=== PATIENT | female | born 1980 | race Caucasian/White ===

== ENCOUNTER 2017-03-16 08:34 | Emergency (ER) | payer SELFPAY ==
[~2017-03-16] VITALS: Ht 160 cm; Wt 131.5 kg
[2017-03-16] MEDS ORDERED: KETOROLAC TROMETHAMINE 60 MG/2 ML VIAL IM ONE (10:30)
[2017-03-16] MEDS ORDERED: DIAZEPAM 2 MG TAB PO ONE (10:30)
[2017-03-16] MEDS ORDERED: HYDROCODONE/APAP 10MG-325MG TAB PO ONE (10:30)
[2017-03-16] MEDS ORDERED: DEXAMETHASONE SOD PHOS 10 MG/1 ML VIAL INJ ONE (11:00)
== END 2017-03-16 11:04 | disposition home or self-care (01) ==
LOC: ER 08:34
DX: M54.2 Cervicalgia (principal); M54.12 Radiculopathy, cervical region
CPT/HCPCS: 99282; J1100; J1885

== ENCOUNTER 2017-03-27 08:31 | Emergency (ER) | payer OTHER ==
[~2017-03-27] VITALS: Ht 160 cm; Wt 136.1 kg
[2017-03-27] MEDS ORDERED: ONDANSETRON HCL 4 MG ORAL DISINTEGRATING TAB PO ONE (09:00)
[2017-03-27] MEDS ORDERED: SODIUM CHLORIDE 0.9% 1000ML 1,000 ML IV STA (09:40)
[2017-03-27] MEDS ORDERED: GABAPENTIN300 MG (09:51)
[2017-03-27] MEDS ORDERED: DIAZEPAM5 MG (09:51)
[2017-03-27] MEDS ORDERED: AMITRIPTYLINE150 MG (09:51)
[2017-03-27] MEDS ORDERED: DIOVAN80 MG PO (09:52)
[2017-03-27 12:04] VITALS: BP 136/68
== END 2017-03-27 11:30 | disposition home or self-care (01) ==
LOC: FSED 08:31
DX: R42 Dizziness and giddiness (principal); R11.0 Nausea; I10 Essential (primary) hypertension; R31.9 Hematuria, unspecified; D64.9 Anemia, unspecified
CPT/HCPCS: 80053; 81025; 85025; 99282; J7030

== ENCOUNTER 2019-04-29 10:25 | Observation (INO) | payer BC, OTHER ==
[2019-04-27 12:59] LABS: BASOPHILS # (AUTO) 0.1 (0.0-0.1); BASOPHILS % 0.7 % (0.0-1.0); EOSINOPHILS # (AUTO) 0.1 (0.0-0.4); EOSINOPHILS % 1.4 % (0.0-6.0); HEMATOCRIT 39.9 % (34.2-44.1); HEMOGLOBIN 12.5 g/dL (12.0-16.0); LYMPHOCYTES # (AUTO) 2.6 (1.0-3.2); LYMPHOCYTES % 36.8 % (18.0-39.1); MEAN CORPUSCULAR HEMOGLOBIN 24.6 pg (28-32); MEAN CORPUSCULAR HGB CONC 31.3 g/dL (31-35); MEAN CORPUSCULAR VOLUME 78.4 fL (81-99); MONOCYTES # (AUTO) 0.5 (0.2-0.8); MONOCYTES % 6.3 % (4.4-11.3); NEUTROPHILS # (AUTO) 3.9 (2.1-6.9); NEUTROPHILS % 54.4 % (38.7-80.0); PLATELET COUNT 247 x10e3/uL (140-360); RED BLOOD COUNT 5.09 x10e6/uL (3.6-5.1); RED CELL DISTRIBUTION WIDTH 21.9 % (11.7-14.4)
[2019-04-27 13:29] LABS: ALANINE AMINOTRANSFERASE 27 IU/L (0-55); ALBUMIN 3.9 g/dL (3.5-5.0); ALBUMIN/GLOBULIN RATIO 1.2 (0.8-2.0); ALKALINE PHOSPHATASE 70 IU/L (40-150); ANION GAP 12.2 mmol/L (8-16); BLOOD UREA NITROGEN 9 mg/dL (7-26); BUN/CREATININE RATIO 11 (6-25); CALCIUM 9.4 mg/dL (8.4-10.2); CARBON DIOXIDE 27 mmol/L (22-29); CHLORIDE 108 mmol/L (98-107); CREATININE, SERUM 0.82 mg/dL (0.57-1.11); EST GLOMERULAR FILTRATION RATE > 60 ML/MIN (60-); GLUCOSE 82 mg/dL (74-118); POTASSIUM 4.2 mmol/L (3.5-5.1); SODIUM 143 mmol/L (136-145)
[2019-04-27 13:32] LABS: CLARITY,URINE CLEAR (CLEAR); COLOR,URINE YELLOW (YELLOW); LEUKOCYTE ESTERASE ,URINE NEGATIVE (NEGATIVE); NITRITE,URINE NEGATIVE (NEGATIVE); PROTEIN,URINE DIPSTICK NEGATIVE (NEGATIVE)
[2019-04-27 13:33] LABS: BILIRUBIN,URINE NEGATIVE (NEGATIVE); KETONES,URINE NEGATIVE (NEGATIVE); URINE UROBILINOGEN 0.2 mg/dL (0.2 - 1)
[~2019-04-29 10:25] MED LIST: AMITRIPTYLINE H25 MG PO; AMITRIPTYLINE150 MG; BUTALBITAL-ACE1 EAC1; CLONAZEPAM1 MG PO; DIAZEPAM5 MG; DIOVAN80 MG PO; GABAPENTIN300 MG; LEXAPRO10 MG PO; LOSARTAN POTAS100 MG PO; NAPROXEN250 MG PO; OMEPRAZOLE40 MG; ORILISSA200 MG
[2019-04-29] MEDS ORDERED: BUPIVACAINE 0.25% 30ML SDV INJ ONE (10:31)
[2019-04-29] MEDS ORDERED: ESTROGENS CONJUGATED VAGINAL CR 45 GM TUBE PV ONE (10:31)
--- OUTSIDE RECORDS SUMMARY | 2019-04-29 10:45 | XMS REPORT | Summary of Care ---
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, 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) Status: Active Chronic neck and back pain (723.1, M54.2) Status: Active Uterine endometriosis (617.0, N80.0) Status: Active Screen for colon cancer (V76.51, Z12.11) Status: Active LAP-BAND surgery status (V45.86, Z98.84) Status: Active Iron deficiency anemia due to chronic blood loss (280.0, D50.0) Status: Active Dental abscess (522.5, K04.7) Status: Active 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, F40.01) Status: Active Other headache syndrome (339.89, G44.89) Status: Active Other mcc (current) drug therapy (V58.69, Z79.899) Status: Active Abdominal pain (789.00, R10.9) Status: Active Acute UTI (599.0, N39.0) Status: Active Anemia, unspecified type (285.9, D64.9) Status: Active Hypernatremia (276.0, E87.0) Status: Active Morbid obesity (278.01, E66.01) Status: Active 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, 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) Status: Active 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, 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) Status: Active Need for influenza vaccination (V04.81, Z23) Status: Active Allergic rhinitis (477.9, J30.9) Status: Active Acute serous otitis media of left ear, recurrence not specified (381.01, H65.02) Status: Active Other iron deficiency anemia (280.8, D50.8) Status: Active Elevated homocysteine (270.4, E72.11) Status: Active Other folate deficiency anemias (281.2, D52.8) Status: Active Benign essential hypertension (401.1, I10) Status: Active Anxiety and depression (300.00, F41.9) Status: Active Chronic GERD (530.81, K21.9) Status: Active Medications Name Dates Details Gabapentin 300 MG Oral Capsule TAKE 1 CAPSULE BY MOUTH THREE TIMES DAILY Quantity: 45 SATTAR M.D., OJ * Start : 10-Apr-2017 Active Amitriptyline HCl - 150 MG Oral Tablet TAKE 1 TABLET BY MOUTH DAILY * Quantity: 15 Refills: 0 SATTAR M.D., OJ * Start : 10-Apr-2017 Active Naproxen 500 MG Oral Tablet TAKE 1 TABLET BY MOUTH TWICE DAILY WITH MEALS * Quantity: 30 Refills: 0 LESTER SANDRA N.P. * Start : 07-Aug-2017 Active Xyzal Allergy 24HR 5 MG Oral Tablet TAKE 1 TABLET DAILY. * Refills: 0 * Start : 10-Apr-2017 Active Butalbital-Acetaminophen 50-325 MG Oral Tablet TAKE 1 TABLET ONCE A DAY NEEDED * Quantity: 30 Refills: 0 SATTAR M.D., OJ * Start : 10-Apr-2017 Active busPIRone HCl - 15 MG Oral Tablet TAKE 1 TABLET EVERY 12 HOURS DAILY. * Quantity: 60 Refills: 4 SATTAR M.D., OJ * Start : 10-Apr-2017 Active Folic Acid 1 MG Oral Tablet TAKE 1 TABLET BY MOUTH DAILY * Quantity: 15 Refills: 0 SATTAR M.D., OJ * Start : 16-Apr-2017 Active Omeprazole 40 MG Oral Capsule Delayed Release TAKE 1 CAPSULE Daily 30 min to 1hr before breakfast * Quantity: 90 Refills: 1 SATTAR M.D., OJ * Start : 23-Apr-2017 Active Losartan Potassium 100 MG Oral Tablet TAKE 1 TABLET DAILY. * Quantity: 90 Refills: 1 SATTAR M.D., OJ * Start : 16-Sep-2017 Active Escitalopram Oxalate 5 MG Oral Tablet TAKE 1 TABLET BY MOUTH DAILY * Quantity: 15 Refills: 0 ESPINOZA Martinez, OJ * Start : 26-Mar-2018 Active Allergies and Adverse Reactions Name Dates Details Penicillins (Allergy) Status: Active Procedures Procedure Dates Details History of Tubal ligation Completed History of section Completed History of Tonsillectomy Completed History of Laparoscopy Completed Immunization Name Dates Details Tdap on: 24-Sep-2011 Fluzone Quadrivalent 0.5 ML Intramuscular Suspension Lot #: [id number] on: 02-Dec-2017 Family History Name Dates Details Family history of Anxiety (300.00, F41.9) Status: Active Name Dates Details Family history of hypertension (V17.49, Z82.49) Status: Active Name Dates Details Family history of bipolar disorder (V17.0, Z81.8) Status: Active Social History Name Dates Details - Status: Name Dates Details Former smoker Vital Signs Date Test Result Details No Known Vitals to report Results Date Description Value Details Results not documented Plan of Care Name Dates Details Planned Observations Planned Goals not documented Interventions Provided Medication Changes* Amitriptyline HCl - 150 MG Oral Tablet - Renew * Escitalopram Oxalate 5 MG Oral Tablet - Renew * Folic Acid 1 MG Oral Tablet - Renew * Gabapentin 300 MG Oral Capsule - Renew Instructions Name Dates Details Instructions not documented Encounters Appointment; OJ DORAN M.D. Encounter Diagnosis: Problem not documented On: 10-Apr-2017 13:15 Appointment; OJ DORAN M.D. Encounter Diagnosis: Problem not documented On: 23-Apr-2017 8:00 Appointment; MARLO HALL M.D. Encounter Diagnosis: Problem not documented On: 23-Apr-2017 13:00 Appointment; OJ DORAN M.D. Encounter Diagnosis: Problem not documented On: 25-May-2017 8:00 Appointment; SINTIA JOHN P.A. Encounter Diagnosis: Problem not documented On: 11-Jun-2017 11:30 Appointment; OSIRIS MONTE M.D. Encounter Diagnosis: Problem not documented On: 24-Jun-2017 9:00 Appointment; OJ DORAN M.D. Encounter Diagnosis: Problem not documented On: 13-Jul-2017 8:30 Appointment; CHESTER OSHEA Encounter Diagnosis: Problem not documented On: 22-Jul-2017 11:00 Appointment; OSIRIS MONTE M.D. Encounter Diagnosis: Problem not documented On: 07-Sep-2017 10:00 Appointment; OJ DORAN M.D. Encounter Diagnosis: Problem not documented On: 08-Sep-2017 8:15 Appointment; SUAD DELCID P.A. Encounter Diagnosis: Problem not documented On: 22-Sep-2017 9:15 Appointment; OJ DORAN M.D. Encounter Diagnosis: Problem not documented On: 14-Oct-2017 10:00 Appointment; OJ DORAN M.D. Encounter Diagnosis: Problem not documented On: 02-Dec-2017 14:30 Appointment; Jama Garcia M.D. Encounter Diagnosis: Problem not documented On: 11-Dec-2017 9:30 Appointment; SINTIA JOHN P.A. Encounter Diagnosis: Problem not documented On: 31-Dec-2017 14:00 Appointment; OJ DORAN M.D. Encounter Diagnosis: Problem not documented On: 26-Mar-2018 8:30 Appointment; OJ DORAN M.D. Encounter Diagnosis: Problem not documented On: 02-Aug-2018 10:00 Appointment; OJ DORAN M.D. Encounter Diagnosis: Problem not documented On: 02-Aug-2018 10:00
--- OUTSIDE RECORDS SUMMARY | 2019-04-29 10:45 | XMS REPORT ---
Author Author [facility] Address Unknown Phone Unavailable Care Team Providers Care Director Of Corporate Responsibility Name Role Phone Unavailable Unavailable Payers Payer Name Policy Type Policy Number Effective Date Expiration Date Problems This patient has no known problems. Allergies, Adverse Reactions, Alerts This patient has no known allergies or adverse reactions. Medications This patient has no known medications. Results Test Description Test Time Test Comments Text Results Atomic Results Result Comments - US ABDOMEN COMPLETE 2018-12-02 12:41:00 Name: KAVYA ANDRES [facility] : 1980 Age/S: 38 / F [address] Unit #: [id number] Loc: [place] [address] Phys: JacksonSy Shay DO Acct: [id number] Dis Date: Status: REG CLI PHONE #: [phone] Exam Date: 12/02/2018 1021 FAX #: [phone] Reason: R10.11 EXAMS: CPT CODE: [id number] US ABDOMEN COMPLETE 87347 HISTORY: R10.11. COMPARISON: None available. The liver is hyperechogenic suggesting mild fibrofatty infiltration which limited evaluation for intrahepatic mass however no discrete lesions. The liver is measuring 18.1 cm in length. No intra or extrahepatic biliary ductal dilatation. CBD is normal at 4.4 mm. Main portal vein is patent with hepatopedal flow and normal spectral waveform. Gallbladder is without gallstones. No pericholecystic fluid or wall thickening. No ascites. Kidneys are free from hydronephrosis and calyceal stones. Normal echogenicity and texture. Right kidney measured 10.3 cm in length. Left kidney measured 12 cm in length. Spleen is mildly enlarged at 15.4 cm in length. Visualized portions of the IVC, aorta and pancreas are normal however imaged incompletely. IMPRESSION: Mild hepatomegaly and mild fibrofatty infiltration. Mild splenomegaly at 15.4 cm in length. Unremarkable kidneys. No gallstones. at 1241 Reported and signed by: Jon Merino M.D. CC: Sy Paz DO Technologist: YUAN VIGIL(R),[facility] Date/Time: 12/02/2018 (1241) [email or web address] Orig Print D/T: S: 12/02/2018 (7048) Probe: PAGE 1 Signed Report
--- OUTSIDE RECORDS SUMMARY | 2019-04-29 10:45 | XMS REPORT | Summary of Care ---
Author Author Bernie De Jesus R.N. Organization Unknown Address [facility] Phone Unavailable Care Team Providers Care Gate Services Supervisor Name Role Phone LESTER SANDRA APRN Unavailable Unavailable Bernie De Jesus R.N. Unavailable Unavailable ESPINOZA Martinez, OJ Unavailable Unavailable ESPINOZA WASHBURN, OJ Unavailable Unavailable Demetrio WASHBURN, Marlo Unavailable Unavailable MELL WASHBURN, OSIRIS Unavailable Unavailable [...] headache syndrome (339.89, G44.89) Status: Active Other extermination supervisor (current) drug therapy (V58.69, Z79.899) Status: Active [...] iron deficiency anemia (280.8, D50.8) Status: Active Other folate deficiency anemias (281.2, D52.8) Status: Active Elevated homocysteine (790.6, R79.89) Status: Active Benign essential hypertension (401.1, I10) Status: Active Chronic GERD (530.81, K21.9) Status: Active Anxiety and depression (300.00, F41.9) Status: Active Medications Name Dates Details Gabapentin [...] * Quantity: 30 Refills: 0 LESTER SANDRA APRN * Start : 07-Aug-2017 Active Xyzal Allergy [...] MOUTH DAILY * Quantity: 15 Refills: 0 OJ DORAN M.D. * Start : 26-Mar-2018 Active Allergies and Adverse Reactions Name Dates Details Penicillins (Allergy) Status: Active Procedures Procedure Dates Details History of Tubal ligation Completed History of section Completed History of Tonsillectomy Completed History of Laparoscopy Completed Immunization Name Dates Details Tdap on: 24-Sep-2011 Fluzone Quadrivalent 0.5 ML Intramuscular Suspension Lot #: [id number] on: 02-Dec-2017 Family History Name Dates Details Family history of Anxiety (300.00, F41.9) Status: Active Name Dates Details Family history of hypertension (V17.49, Z82.49) Status: Active Name Dates Details Family history of bipolar disorder (V17.0, Z81.8) Status: Active Social History Name Dates Details - Status: Name Dates Details Ex-smoker (finding) Vital Signs Date Test Result Details No Known Vitals to report Results Date Description Value Details Results not documented Plan of Care Name Dates Details Planned Observations Planned Goals not documented Interventions Provided Discussion/Summary* Guideline Used: * Other: Lab results * Dr Garcia - [facility] * Drea from Dr. Whiting office requesting lab results for Thrombophelia (clotting factors) results that were done on 12/11/[address] Garcia * Dr. David Whiting * * * Recommended Disposition: task to Veronica Mesa Instructions Name Dates Details Instructions not documented [...]
[2019-04-29 11:38] LABS: INR 0.93
[2019-04-29] MEDS ORDERED: CEFAZOLIN SOD 1 GM/NS 50ML 100 ML IV ONE (12:05)
[2019-04-29] MEDS ORDERED: ACETAMINOPHEN 1000 MG/100 ML 100 ML IV ONE (13:13)
[2019-04-29] MEDS ORDERED: IBUPROFEN 800MG/ 200ML 200 ML IV ONE (13:13)
[2019-04-29] MEDS ORDERED: LIDOCAINE 1% W/EPINEPHRINE 20 ML VIAL ONE (13:46)
[2019-04-29] MEDS ORDERED: KETAMINE HCL INJ 50 MG/ML 10 ML VIAL ONE (13:49)
[2019-04-29] MEDS ORDERED: MIDAZOLAM HCL 2 MG/2 ML VIAL ONE (13:49)
[2019-04-29] MEDS ORDERED: FENTANYL CITRATE/PF 100MCG/2 ML INJ ONE ×2 (13:49→16:27)
[2019-04-29] MEDS ORDERED: SUGAMMADEX SODIUM 200 MG/2 ML VIAL IV ONE (14:54)
[2019-04-29] MEDS ORDERED: PROPOFOL IV EMULSION 10 MG/ML 20 ML VIAL ONE (14:58)
[2019-04-29] MEDS ORDERED: ROCURONIUM BROMIDE 10 MG/ML 5ML VIAL ONE (14:58)
[2019-04-29] MEDS ORDERED: LIDOCAINE HCL 2% LOCAL INJ 5 ML SDV VIAL INJ ONE (14:58)
[2019-04-29] MEDS ORDERED: ONDANSETRON HCL INJ 2MG/ML 2ML 2 MG/ML VIAL ONE (14:58)
[2019-04-29] MEDS ORDERED: SEVOFLURANE INHAL SOLN 250 ML PEN BTL ONE (14:58)
[2019-04-29] MEDS ORDERED: DEXAMETHASONE SOD PHOS INJ 4 MG/ML VIAL ONE (14:58)
[2019-04-29] MEDS ORDERED: ONDANSETRON HCL INJ 2MG/ML 2ML 2 MG/ML VIAL IV PRN (16:00)
[2019-04-29] MEDS ORDERED: CLONAZEPAM 1 MG TAB PO PRN (16:00)
[2019-04-29] MEDS ORDERED: ACETAMINOPHEN 325 MG TAB PO PRN (16:00)
[2019-04-29] MEDS ORDERED: GABAPENTIN 300 MG CAP PO PRN (16:00)
[2019-04-29] MEDS ORDERED: DIPHENHYDRAMINE HCL 25 MG CAP PO PRN (16:00)
[2019-04-29] MEDS ORDERED: MORPHINE SULFATE 2 MG/ML SYR 1ML IV PRN (16:00)
[2019-04-29] MEDS ORDERED: BISACODYL 10 MG SUPP PR PRN (16:00)
[2019-04-29] MEDS ORDERED: KETOROLAC TROMETHAMINE 30 MG/ML VIAL IV PRN (16:00)
[2019-04-29] MEDS ORDERED: NAPROXEN 250 MG TAB PO PRN (16:00)
[2019-04-29] MEDS ORDERED: DOCUSATE SODIUM 100 MG CAP PO PRN (16:00)
[2019-04-29] MEDS ORDERED: METOCLOPRAMIDE HCL 10 MG/2ML VIAL ONE (16:58)
[2019-04-29] MEDS: SIMETHICONE 80 MG CHEW PO SCH ×2 (18:00→21:00)
--- NOTE | 2019-04-29 19:25 | NUR ---
report received from DOORS PREFITTER, patient pending arrival to the floor from PACU s/p hysterectomy, moon in place, needs to be removed at 1999 per RN, patient orders in computer per RN, HX of HTN, gastric band, informed of no vaginal packing present at this time,vital stable HR 97 SR, oxygen 98%RA
--- NOTE | 2019-04-29 19:41 | NUR ---
PATIENT ARRIVE TO THE FLOOR VIA GURNEY AOX4, ABLE TO REPOSITION SELF FROM GURNEY TO BED, SIGN LANGUAGE INSTRUCTOR TOOK AT KLEIN CATHETER UPON ARRIVAL, CATHETER INTAKE, PATIENT PENDING VOID, ORIENTED TO ROOM, STAFF, VSS, AFEBRILE, BED IN LOWEST POSITION, EDUCATED TO CALL RN WITH CALL LIGHT PRIOR TO GETTING OUT OF BED FALL PRECAUTIONS IN PLACE
--- NOTE | 2019-04-29 19:58 | NUR ---
MD LÓPEZ AT BEDSIDE, PATIENT ORDERS AND eMAR VERIFIED WITH , CALLED BY ADVERTISEMENT DISTRIBUTOR PATIENT TO TRANSFERRED TO [facility]
--- NOTE | 2019-04-29 20:09 | NUR ---
PATIENT ARRIVED TO THE UNIT VIA WHEELCHAIR WITH BELONGINGS AND MOTHER ACCOMPANIED HER. PATIENT IN NO PAIN OR DISTRESS. RECEIVED REPORT FROM NURSE SILAS IN MED SURG 2. PATIENT IS A&OX3 AND AMBULATES.
--- NOTE | 2019-04-29 20:15 | NUR ---
PATIENT URINATED IN THE TOILET
[2019-04-29 20:20] VITALS: BP 141/78
[2019-04-29 20:34] VITALS: BP 115/56
[2019-04-29] MEDS: DEXTROSE 5%/0.225% SOD CHL 1,000 ML IV SCH (20:42)
[2019-04-29] MEDS: CEFAZOLIN SOD 2 GM/D5W 50ML 50 ML IV SCH (20:43)
[2019-04-29] MEDS ORDERED: PANTOPRAZOLE SOD 40 MG TABEC PO SCH (21:00)
[2019-04-29] MEDS ORDERED: AMITRIPTYLINE HCL 25 MG TAB PO SCH (21:00)
--- NOTE | 2019-04-29 21:30 | NUR ---
PATIENT WALKING AROUND THE HOSPITAL AND VOIDED ONE MORE TIME
[2019-04-29 21:38] VITALS: BP 115/56
[2019-04-29] MEDS ORDERED: CEFAZOLIN SOD 1 GM VIAL IV SCH (22:00)
[2019-04-29] MEDS ORDERED: ENOXAPARIN SOD INJ 40 MG/0.4 ML SYR SC SCH (23:00)
--- NOTE | 2019-04-29 23:45 | Operative Report ---
DATE OF PROCEDURE: 04/29/2019 SURGEON: Elder Childress MD ADDENDUM: Dr. Campos assisted with retraction, hemostasis, visualization, suturing, irrigation, and suctioning. MD MARIA T Lira/MODL /[id number]
--- NOTE | 2019-04-30 | Operative Report ---
DATE OF PROCEDURE: 04/29/2019 SURGEON: Elder Childress MD PREOPERATIVE DIAGNOSES: Abnormal uterine bleeding, anemia, thrombophilia, and history of deep venous thrombosis. POSTOPERATIVE DIAGNOSES: Abnormal uterine bleeding, anemia, thrombophilia, and history of deep venous thrombosis, pending pathology. TITLE OF PROCEDURE: Total laparoscopic hysterectomy, bilateral salpingectomy. FOOD WRITER: Germán Campos MD. ANESTHESIA: General with Dr. Dent and Cyrus, planning assistant. INDICATION FOR OPERATION: The patient is a 38-year-old 1, para 1 with last menstrual period on January 09, 2019, status post tubal ligation in 2011, listed for anemia with a hemoglobin of 7, now up to 12 after four months of . She is therefore here for total laparoscopic hysterectomy, bilateral salpingectomy secondary to abnormal uterine bleeding and severe anemia. She has thrombophilia and therefore is unable to take hormones to decrease her bleeding, ablation, hysterectomy were discussed. She declines ablation because of its potential failure rate. She is therefore here for total laparoscopic hysterectomy with bilateral salpingectomy and possible oophorectomy only if the ovaries are abnormal. She is therefore taken to the operating room at this time. FINDINGS OF SURGERY: There was a 6-8 week size uterus, normal tubes and ovaries. There were adhesions of the bladder to the uterus due to her previous , otherwise no adhesions. The uterus was easily removed using the laparoscopic hysterectomy technique. DESCRIPTION OF PROCEDURE: The patient was taken to the operating room, placed on the table in supine position. General anesthesia was administered. The patient was placed in the lithotomy position. The perineum was prepared and draped in the usual sterile manner as was the abdomen. A Arriaza catheter was placed in the bladder for constant drainage. Pelvic exam revealed a 6-8 week size anteverted mobile uterus with no adnexal masses. A weighted speculum was placed in the posterior vaginal wall, then with the aid of right angle retractor, the anterior lip of the cervix was grasped with single-tooth tenaculum. Then, the VCare cup was placed on the cervix after the uterus was sounded to 9 cm. The VCare manipulator was placed and the balloon was blown up to hold the VCare in place and then tenaculum was removed and the cup was brought down onto the cervix to aid in the manipulation. At this point, balloon seal was placed in the vagina to help maintain the pneumoperitoneum when we were about to remove the uterus through the vagina. She was then placed back in a more lithotomy position and then, the film casting operator changed gloves and a small incision was made just inferior to the umbilicus in the midline. Then, the trocar was placed into the incision and we reached the peritoneal cavity under direct visualization by laparoscopy. The trocar was removed, the laparoscope was placed with confirmation the peritoneal cavity was entered. Pneumoperitoneum was started prior to placing the laparoscope, which filled up to 5 L of carbon dioxide gas and then at this point, we were able to visualize the uterus, tubes, and ovaries with the findings of few adhesions of bladder to the anterior surface of the uterus, but otherwise no significant adhesions and at this point, a 5 mm trocar was placed in the right lower quadrant under direct visualization by laparoscopy and then, a 10 mm trocar was placed in the left lower quadrant under direct visualization by laparoscopy. At this point, attention was turned to the left adnexa. The mesosalpinx was grabbed between the tube and the ovary. The LigaSure instrument was placed. Cautery was performed until the ammeter indicated that there was good desiccation of the tissue and then, the mesosalpinx was cut and the tube was cut away from the uterus and then we proceeded down the mesosalpinx, clamping with the ligature, coagulating and then cutting until the tube was completely from the ovary and at this point, the utero-ovarian ligament was clamped and coagulated until desiccated and cut. At this point, the ovary was free of the uterine attachment and then the round ligament was clamped on the left side, coagulated and cut and at this point, the broad ligament was clamped, coagulated, and cut in small segments until we reached the uterine vessels. Then, the vessels were skeletonized and identified and clamped, coagulated, and cut, this was done after we had opened anteriorly from round ligament to round ligament and on the right side, the same was done with a tube being clamped, coagulated and cut away from the uterus. The utero-ovarian ligament being clamped and cut. The anterior peritoneum being opened and then, the uterine vessels were skeletonized and then, the uterine vessels were clamped, cauterized and then cut and at this point, using pressure from the VCare manipulator, we were able to visualize the cup posteriorly and we used monopolar current to cut the uterosacral ligaments away from the uterus and doing this directly in the cup for protection from injury to other tissue. We were then able to go posteriorly around entirely and anteriorly, we were able to better visualize the bladder, make sure that it was dissected away from the uterus and then, the anterior portion of the cup was coagulated so that all the attachments fell away from the uterus and then, the uterus was able to be removed through the vagina and we inspected for any bleeders and none were seen and we proceeded to close the vaginal cuff. After irrigating and suctioning, the vaginal cuff was closed with 0 Vicryl [id number] stitches using the laparoscopic ligation device and at this point, there was good hemostasis noted at the cuff. We then irrigated and suctioned and then Dr. Campos proceeded to perform cystoscopy. The cystoscope was placed into the bladder after fluid had already been placed in the bladder to ensure that there was no leakage of urine and then because the fluid bolus had been given about 15 minutes prior to this, we were able to see the ureteral jets almost immediately and documented that there was no injury to the bladder whatsoever. At this point, the procedure was deemed terminated. All the fluid was removed from the bladder and a new Arriaza catheter was placed into the bladder and all the instruments were removed from the vagina and then, the instruments were removed from the abdomen and the skin incisions were closed with inverted stitches of 4-0 Monocryl suture, thus completing the procedure. There were no complications noted. Estimated blood loss was 50 mL. The patient tolerated the procedure well, was transferred from the operating room to the recovery room in stable condition. MD MARIA T Lira/MODL /[id number]
[2019-04-30 00:29] VITALS: BP 107/57
[2019-04-30] MEDS ORDERED: INFLUENZA VIRUS VAC SPLIT INJ 0.5 ML SYR IM SCH (00:43)
[2019-04-30] MEDS: DEXTROSE 5%/0.225% SOD CHL 1,000 ML IV SCH ×2 (03:44→09:20)
[2019-04-30] MEDS: CEFAZOLIN SOD 2 GM/D5W 50ML 50 ML IV SCH (03:44)
[2019-04-30 04:58] VITALS: BP 92/41
[2019-04-30 05:54] LABS: BASOPHILS % 0.3 % (0.0-1.0); EOSINOPHILS % 0.3 % (0.0-6.0); HEMATOCRIT 39.4 % (34.2-44.1); HEMOGLOBIN 12.1 g/dL (12.0-16.0); LYMPHOCYTES # (AUTO) 1.7 (1.0-3.2); MEAN CORPUSCULAR HEMOGLOBIN 24.4 pg (28-32); MEAN CORPUSCULAR HGB CONC 30.7 g/dL (31-35); MEAN CORPUSCULAR VOLUME 79.4 fL (81-99); MONOCYTES # (AUTO) 0.5 (0.2-0.8); MONOCYTES % 4.6 % (4.4-11.3); NEUTROPHILS # (AUTO) 9.2 (2.1-6.9); NEUTROPHILS % 79.5 % (38.7-80.0); PLATELET COUNT 224 x10e3/uL (140-360); RED BLOOD COUNT 4.96 x10e6/uL (3.6-5.1); RED CELL DISTRIBUTION WIDTH 21.6 % (11.7-14.4)
--- NOTE | 2019-04-30 06:57 | NUR ---
GAVE REPORT TO ONCOMING NURSE. CALL LIGHT WITHIN REACH. PATIENT IN BED. PATIENT IS A&OX3 AND AMBULATES.
[2019-04-30 08:20] VITALS: BP_SYST 94; BP_SYST 97; BP_DIAS 48
[2019-04-30] MEDS ORDERED: ESCITALOPRAM OXALATE 10 MG TAB PO SCH (09:00)
[2019-04-30] MEDS ORDERED: LOSARTAN POTASSIUM 100 MG TAB PO SCH (09:00)
[2019-04-30] MEDS: SIMETHICONE 80 MG CHEW PO SCH (09:22)
--- NOTE | 2019-04-30 09:23 | NUR ---
Received patient from relocated RN, patient a/ox3, pains well controlled, no distress, tolerated meds, rounds by surgeon and will be discharging patient today.
[2019-04-30] MEDS ORDERED: LOVENOX60 MG/0.6 SC (09:24)
[2019-04-30] MEDS ORDERED: INFLUENZA VIRUS VAC SPLIT INJ 0.5 ML SYR IM NR (10:00)
== END 2019-04-30 10:11 | disposition home or self-care (01) ==
LOC: OR 10:25 → PACU V 16:10 → MED/SURG2 19:29 → MED/SURG 20:12
PROVIDERS: ADMIT Obstetrics & Gynecology; ATTEND Obstetrics & Gynecology
DX: N93.8 Other specified abnormal uterine and vaginal bleeding (principal); D68.59 Other primary thrombophilia; Z86.718 Personal history of other venous thrombosis and embolism; I10 Essential (primary) hypertension; K21.9 Gastro-esophageal reflux disease without esophagitis; F41.9 Anxiety disorder, unspecified
CPT/HCPCS: 36415 ×3; 58571; 80053; 81003; 82948 ×2; 84702; 85025 ×2; 85610; 85730; 86850; 86900; 88307; 93005; G0378 ×2; J0131; J0690 ×2; J1100; J1650; J1885; J2001; J2250; J2270; J2405 ×2; J2704; J2765; J3010; S0164; 88309

== ENCOUNTER 2020-03-21 09:00 | Outpatient (RCR) | payer OTHER ==
[~2020-03-21 09:00] MED LIST changes: +LOVENOX60 MG/0.6 SC
== END 2020-03-25 ==
LOC: OT 09:00
PROVIDERS: ATTEND Orthopaedic Surgery
DX: S62.307D Unspecified fracture of fifth metacarpal bone, left hand, subsequent encounter for fracture with routine healing (principal); M79.642 Pain in left hand; M25.642 Stiffness of left hand, not elsewhere classified; R53.1 Weakness
CPT/HCPCS: 97010; 97110 ×2; 97165; L3906

== ENCOUNTER 2022-05-30 13:45 | Emergency (ER) | payer BC, OTHER ==
[~2022-05-30] VITALS: Ht 157.5 cm; Wt 124.7 kg
[2022-05-30] MEDS ORDERED: KETOROLAC TROMETHAMINE 30 MG/ML VIAL IV STA (14:47)
[2022-05-30] MEDS ORDERED: DEXAMETHASONE SOD PHOS INJ 4 MG/ML SDV IV ONE (15:00)
[2022-05-30] MEDS ORDERED: SODIUM CHLORIDE 0.9% 1000ML 1,000 ML IV SCH (15:00)
[2022-05-30] MEDS ORDERED: FIORICET 50-301 EACH PO (17:21)
[2022-05-30 17:38] VITALS: BP 121/72
== END 2022-05-30 17:40 | disposition home or self-care (01) ==
LOC: FSED 13:54
DX: G43.909 Migraine, unspecified, not intractable, without status migrainosus (principal); J34.89 Other specified disorders of nose and nasal sinuses; M25.511 Pain in right shoulder; I10 Essential (primary) hypertension; F31.9 Bipolar disorder, unspecified
CPT/HCPCS: 70450; 70486; 80053; 81003; 85025; 96374; 96376; 99284

== ENCOUNTER 2023-10-17 00:10 | Inpatient (IN) | payer BC ==
[2023-10-17] VITALS (15 sets, daily range): BP systolic 115–149; BP diastolic 55–78; PULSE 77–121; RESP 18; TEMP 97.9–98.3; O2SAT 93–100
[~2023-10-17] VITALS: Ht 157.5 cm; Wt 138.3 kg
[~2023-10-17 00:10] MED LIST changes: +FIORICET 50-301 EACH PO
[2023-10-17] MEDS ORDERED: ONDANSETRON HCL INJ 2MG/ML 2ML 2 MG/ML VIAL IV PRN ×2 (00:15→02:00)
[2023-10-17] MEDS ORDERED: OMEPRAZOLE40 MG PO (01:28)
[2023-10-17] MEDS ORDERED: SODIUM CHLORIDE FLUSH 10 ML SYR INJ PRN (01:45)
[2023-10-17] MEDS ORDERED: DIPHENHYDRAMINE HCL INJ 50 MG/ML VIAL IV PRN (02:00)
[2023-10-17] MEDS ORDERED: ACETAMINOPHEN 325 MG TAB PO PRN (02:00)
[2023-10-17] MEDS ORDERED: ZOLPIDEM TARTRATE 5 MG TAB PO PRN (02:00)
[2023-10-17] MEDS ORDERED: ENALAPRILAT IV INJ 1.25 MG/ML VIAL IV PRN (02:00)
[2023-10-17] MEDS: FAMOTIDINE 20 MG/2 ML VIAL IV ONE (03:21)
[2023-10-17] MEDS: ASPIRIN 81 MG CHEW TAB PO ONE ×2 (03:22)
[2023-10-17] MEDS: ACETAMINOPHEN 325 MG TAB PO ONE (03:22)
[2023-10-17] MEDS ORDERED: SEROQUEL100 MG PO (03:24)
[2023-10-17] MEDS: QUETIAPINE FUMARATE 100 MG TAB PO SCH (04:04)
[2023-10-17] MEDS: OMEPRAZOLE 20 MG CAP PO SCH (08:22)
[2023-10-17 10:06] LABS: TROPONIN I 0.003 ng/mL (0-0.300)
[2023-10-17] MEDS ORDERED: POLYETHYLENE GLYCOL 3350 17 GM PACK PO PRN (10:45)
[2023-10-17] MEDS ORDERED: METOPROLOL TARTRATE INJ 1 MG/ML VIAL IV PRN (10:45)
[2023-10-17] MEDS ORDERED: DEPAKOTE ER250 MG PO (12:29)
[2023-10-17] MEDS ORDERED: COMPAZINE25 MG PO ×2 (12:29)
[2023-10-17] MEDS ORDERED: PROPAFENONE HC325 MG PO (12:29)
[2023-10-17 12:39] LABS: FERRITIN 44.6 ng/mL (4.63-204.00)
[2023-10-17] MEDS ORDERED: IOPAMIDOL 370 MG/ML 100 ML INFUS..BTL INJ ONE (13:29)
[2023-10-17] MEDS ORDERED: CLONAZEPAM 1 MG TAB PO SCH (13:30)
[2023-10-17] MEDS ORDERED: PROPAFENONE HCL SR 325 MG CAPCR PO SCH (13:30)
[2023-10-17] MEDS ORDERED: PROCHLORPERAZINE 5 MG PO SCH (13:30)
[2023-10-17] MEDS ORDERED: ACETAMIN/BUTALBITAL/CAFFEINE TAB PO PRN (13:45)
[2023-10-17] MEDS: MAGNESIUM SULF 1GRAM/DEXTROSE 100 ML IV ONE (14:35)
[2023-10-17] MEDS: NAPROXEN 250 MG TAB PO SCH (14:35)
[2023-10-17] MEDS: LOSARTAN POTASSIUM 100 MG TAB PO ONE (14:37)
[2023-10-17] MEDS ORDERED: PROCHLORPERAZINE PO SCH (15:00)
[2023-10-17 16:26] LABS: CREATINE KINASE 35 IU/L (29-168)
[2023-10-17] MEDS ORDERED: FAMOTIDINE 20 MG TAB PO SCH (16:30)
[2023-10-17 16:35] LABS: TROPONIN I < 0.001 ng/mL (0-0.300)
[2023-10-17] MEDS: DIVALPROEX SODIUM 250 MG TAB...DR PO SCH (16:48)
[2023-10-17] MEDS: DOCUSATE SODIUM 100 MG CAP PO SCH (16:48)
[2023-10-18] VITALS (8 sets, daily range): BP systolic 95–124; BP diastolic 52–78; PULSE 76–101; RESP 17–18; TEMP 97.5–98.4; O2SAT 98–100
[2023-10-18 06:26] LABS: BASOPHILS % 0.7 % (0.0-1.0); EOSINOPHILS % 0.7 % (0.0-6.0); HEMATOCRIT 37.2 % (34.2-44.1); HEMOGLOBIN 11.8 g/dL (12.0-16.0); LYMPHOCYTES # (AUTO) 2.1 (1.0-3.2); MEAN CORPUSCULAR HEMOGLOBIN 27.1 pg (28-32); MEAN CORPUSCULAR HGB CONC 31.7 g/dL (31-35); MEAN CORPUSCULAR VOLUME 85.5 fL (81-99); MONOCYTES # (AUTO) 0.5 (0.2-0.8); MONOCYTES % 8.5 % (4.4-11.3); NEUTROPHILS # (AUTO) 2.7 (2.1-6.9); NEUTROPHILS % 50.5 % (38.7-80.0); PLATELET COUNT 181 x10e3/uL (140-360); RED BLOOD COUNT 4.35 x10e6/uL (3.6-5.1); RED CELL DISTRIBUTION WIDTH 13.7 % (11.7-14.4); WHITE BLOOD COUNT 5.43 x10e3/uL (4.8-10.8)
[2023-10-18 06:35] LABS: INR 0.93; PROTHROMBIN TIME 12.9 seconds (11.9-14.5)
[2023-10-18 06:46] LABS: PARTIAL THROMBOPLASTIN TIME 22.2 seconds (23.8-35.5)
[2023-10-18 06:48] LABS: ALBUMIN 3.5 g/dL (3.5-5.0); ALBUMIN/GLOBULIN RATIO 1.3 (0.8-2.0); ANION GAP 9.1 mmol/L (8-16); BILIRUBIN,TOTAL 0.5 mg/dL (0.2-1.2); CALCIUM 9.7 mg/dL (8.4-10.2); CREATININE, SERUM 0.77 mg/dL (0.57-1.11); POTASSIUM 4.1 mmol/L (3.5-5.1); TOTAL PROTEIN 6.3 g/dL (6.5-8.1)
[2023-10-18 07:05] LABS: CHOL/HDL RATIO 4.2 (3.0-3.6)
[2023-10-18 07:25] LABS: CREATINE KINASE 30 IU/L (29-168); THYROID STIMULATING HORMONE 2.32 uIU/mL (0.350-4.940)
[2023-10-18 07:33] LABS: TROPONIN I < 0.001 ng/mL (0-0.300)
[2023-10-18] MEDS: PANTOPRAZOLE SOD 40 MG TABEC PO SCH (08:40)
[2023-10-18] MEDS: LOSARTAN POTASSIUM 100 MG TAB PO SCH (08:40)
[2023-10-18] MEDS: FOLIC ACID 1 MG TAB PO ONE (10:29)
[2023-10-18 14:48] LABS: CREATINE KINASE 48 IU/L (29-168)
[2023-10-18 14:57] LABS: TROPONIN I < 0.001 ng/mL (0-0.300)
[2023-10-19] VITALS: BP 104/40; PULSE 76; RESP 18; TEMP 97.8; O2SAT 97
[2023-10-19 06:02] LABS: CREATINE KINASE 41 IU/L (29-168)
[2023-10-19 08:00] VITALS: BP 104/40; PULSE 76; RESP 18; TEMP 97.8; O2SAT 97
[2023-10-19] MEDS ORDERED: REGADENOSON 0.4 MG/5 ML SYR IV ONE (09:00)
[2023-10-19 09:12] VITALS: BP 112/53; PULSE 79; RESP 16; TEMP 98.2; O2SAT 98
[2023-10-19] MEDS: FOLIC ACID 1 MG TAB PO SCH (11:13)
[2023-10-19 11:18] LABS: TROPONIN I < 0.05 ng/mL (0.0-0.40)
[2023-10-19 12:22] VITALS: BP 128/69; PULSE 78; RESP 17; TEMP 98.2; O2SAT 100
[2023-10-19] MEDS ORDERED: PROPRANOLOL HCL10 MG PO (12:28)
[2023-10-19] MEDS ORDERED: PROCHLORPERAZINE MALEATE TAB 10 MG TAB PO PRN (14:15)
[2023-10-19 16:17] VITALS: BP 108/60; PULSE 79; RESP 17; TEMP 97.7; TEMP 97.9; O2SAT 100
[2023-10-19 20:00] VITALS: BP 121/53; PULSE 88; RESP 18; TEMP 98.2; O2SAT 100
[2023-10-19] MEDS: PROPRANOLOL HCL 10 MG TAB PO SCH (20:47)
[2023-10-20 01:29] VITALS: BP 104/41; PULSE 87; RESP 19; TEMP 98; O2SAT 100
[2023-10-20 05:51] VITALS: BP 102/60; PULSE 88; RESP 18; TEMP 98.4; O2SAT 99
[2023-10-20 07:56] VITALS: BP 119/84; PULSE 87; RESP 18; TEMP 98.2; O2SAT 99
[2023-10-20 08:00] VITALS: BP 119/84; PULSE 87; RESP 18; TEMP 98.2; O2SAT 99
[2023-10-20 12:02] VITALS: BP 108/68; PULSE 86; RESP 16; TEMP 99.3; O2SAT 100
[2023-10-20] MEDS ORDERED: FOLIC ACID0.8 MG PO (13:29)
[2023-10-20] MEDS ORDERED: PROCHLORPERAZIN10 MG PO (13:29)
== END 2023-10-20 15:35 | disposition home or self-care (01) | DRG 308 ==
LOC: FSED 00:16 → ERHOLD 01:47 → MED/SURG2 03:11 → OBSVTOIN 10-18 11:29
PROVIDERS: ADMIT Internal Medicine; ATTEND Internal Medicine
DX: R00.0 Tachycardia, unspecified (principal); I82.0 Budd-Chiari syndrome; Z68.43 Body mass index [BMI] 50.0-59.9, adult; R55 Syncope and collapse; E66.01 Morbid (severe) obesity due to excess calories; R07.9 Chest pain, unspecified; R10.13 Epigastric pain; R09.02 Hypoxemia; E83.42 Hypomagnesemia; I10 Essential (primary) hypertension; F31.9 Bipolar disorder, unspecified; F42.9 Obsessive-compulsive disorder, unspecified; F41.1 Generalized anxiety disorder; G43.909 Migraine, unspecified, not intractable, without status migrainosus; E53.8 Deficiency of other specified B group vitamins; Z11.52 Encounter for screening for COVID-19; K21.9 Gastro-esophageal reflux disease without esophagitis; Z85.42 Personal history of malignant neoplasm of other parts of uterus; Z90.710 Acquired absence of both cervix and uterus; Z88.0 Allergy status to penicillin; Z88.1 Allergy status to other antibiotic agents; Z82.49 Family history of ischemic heart disease and other diseases of the circulatory system
CPT/HCPCS: 0223U; 36415; 71046; 71260; 74177; 76700; 78451; 80053; 80061; 81003; 82550; 82553; 82607; 82728; 82746; 82948; 83036; 83540; 83735; 83880; 84100; 84439; 84443; 84466; 84484; 85025; 85045; 85379; 85610; 85730; 87400; 93005; 93017; 93306; 93970; 99284; A9502; G0378; J2405; J3475; Q9967

== ENCOUNTER → 2024-06-10 | Day surgery (SDC) | payer BC, OTHER ==
[~2024-06-10] MED LIST changes: +COMPAZINE25 MG PO; +DEPAKOTE ER250 MG PO; +FENTANYL CITRATE/PF 100MCG/2 ML INJ ONE; +FOLIC ACID0.8 MG PO; +LIDOCAINE HCL 2% LOCAL INJ 5 ML SDV VIAL INJ ONE; +MIDAZOLAM HCL 2 MG/2 ML VIAL ONE; +MULTI-VITAMIN1 EACH PO; +OMEPRAZOLE40 MG PO; +PROCHLORPERAZIN10 MG PO; +PROPAFENONE HC325 MG PO; +PROPOFOL IV EMULSION 10 MG/ML 20 ML VIAL ONE; +PROPRANOLOL HCL10 MG PO; +SEROQUEL100 MG PO
[2024-06-10] MEDS: LACTATED RINGER'S 1,000 ML ONE (07:41)
[2024-06-10 10:05] VITALS: BP 136/87; PULSE 88; RESP 17; O2SAT 96
== END | disposition home or self-care (01) ==
LOC: OR 06:52
PROVIDERS: ATTEND Internal Medicine Gastroenterology
DX: Z12.11 Encounter for screening for malignant neoplasm of colon (principal); D12.4 Benign neoplasm of descending colon; K29.70 Gastritis, unspecified, without bleeding; K22.70 Barrett's esophagus without dysplasia; K44.9 Diaphragmatic hernia without obstruction or gangrene; K21.9 Gastro-esophageal reflux disease without esophagitis; K31.89 Other diseases of stomach and duodenum; K28.9 Gastrojejunal ulcer, unspecified as acute or chronic, without hemorrhage or perforation; R19.7 Diarrhea, unspecified; R63.4 Abnormal weight loss; C55 Malignant neoplasm of uterus, part unspecified; D50.9 Iron deficiency anemia, unspecified; I10 Essential (primary) hypertension; E66.9 Obesity, unspecified; M32.9 Systemic lupus erythematosus, unspecified; F31.9 Bipolar disorder, unspecified; F17.200 Nicotine dependence, unspecified, uncomplicated; Z88.0 Allergy status to penicillin; Z01.810 Encounter for preprocedural cardiovascular examination; Z79.899 Other long term (current) drug therapy; Z79.1 Long term (current) use of non-steroidal anti-inflammatories (NSAID); Z68.42 Body mass index [BMI] 45.0-49.9, adult; Z98.890 Other specified postprocedural states; Z80.0 Family history of malignant neoplasm of digestive organs
CPT/HCPCS: 43239; 45380; 45384; 74246; 93005; J2003; J2250; J2704; J3010; J7121; 45378